=== PATIENT | female | born 1980 | race Caucasian/White ===

== ENCOUNTER 2019-04-20 09:50 | Inpatient (IN) ==
[2019-04-20] MEDS ORDERED: *HR* Nalbuphine 10 MG/ML AMPUL IVP PRN (10:02)
[2019-04-20] MEDS ORDERED: Naloxone 0.4 MG/ML INJ IVP PRN (10:02)
[2019-04-20] MEDS ORDERED: Metoclopramide 10 MG/2 ML VIAL IVP PRN (10:02)
[2019-04-20] MEDS ORDERED: Famotidine 20 MG/2 ML VIAL IVP PRN (10:02)
--- NOTE | 2019-04-20 10:10 | OB/GYN History & Physical ---
Date of Encounter: 04/20/19 Time of Encounter: 10:04 Assessment and Plan (1) 39 weeks gestation of Current visit: Yes Status: Acute Admitted for IOL Plain to start Pitocin (2) AMA (advanced maternal age) multigravida 35+ Current visit: Yes Status: Acute Schedule IOL per recommendations Qualifiers: Trimester: third trimester Qualified Code(s): O09.523 - Supervision of elderly multigravida, third trimester (3) History of macrosomia in infant in prior , currently Current visit: Yes Status: Acute History of 9#10oz , current has EFW of 8#130z 97% History of Present Illness Chief complaint: Sheduled IOL for AMA at 39 weeks gestation HPI: Ms. Gordon is a 38 year old female @ 39w0d presents to labor and delivery for scheduled IOL for AMA. IOL also recommended by Dr. Akbar for EFW of 8#13oz @ 97th percentile at [address] Smith is the physician operations engineer today, she is aware of POC and available if needed. Patient was a transfer of care during at 24 weeks gestation to [facility] from [place]. Patient did have an abnormal 1 hour and passed 3 hour gtt. She did have Polyhdramnios as well during the that has resolved. Blood type: O+ Rubella: Non-immune Hep B:Nonreactive GBS: Negative Past Med Surg Social Fam HX - Past Medical History Source: patient Medical history: no medical history Psychiatric history: no psych history - Past Surgical History Additional surgical history: RT ANKLE SURG, Tonsils, LEEP 1999 - Social History Smoking Status: Never smoker Smokeless Tobacco Status: No Alcohol use: none Drug use: none Occupational status: employed Current living situation: Home - Independent Activity Level: Independent ambulation Recent Out of Country Travel Within the Last 8 Weeks: No Exposure or Possible Exposure to Illness During Travel: No - Family History Mother Living Status: Still Living Hx Family Cardiac Disorders: Yes (HTN) Obstetrical History - Pregnancies : 7 Para: 4 Term: 4 : 0 Ab's: 2 Livin - History/Complications History/Complications: 1 MAB 1 Ectopic Medications and Allergies Ferrous Sulfate [Iron] 325 mg PO DAILY 04/20/19 [History] Omeprazole [PriLOSEC] 20 mg PO DAILY 04/20/19 [History] Allergy/AdvReac Type Severity Reaction Status Date / Time No Known Allergies Allergy Verified 04/20/19 10:15 Review of System OB - Constitutional Constitutional ROS IM: no chills, no fever(s), no headache(s) - Cardiovascular Cardiovascular: no chest pain, no palpitations, no paroxysmal nocturnal dyspnea, no syncope - Respiratory Respiratory: no cough, no dyspnea - Gastrointestinal Gastrointestinal: no abdominal pain, no constipation, no diarrhea, no heartburn, no nausea, no vomiting - Genitourinary Genitourinary: no abnormal vaginal bleeding, no dysuria, no flank pain, no urinary frequency, no urinary urgency, no vaginal discharge, no vaginal odor, no vaginal pruritis Exam - Constitutional Constitutional: well developed, well nourished, no acute distress, average body habitus - HEENT HEENT: Normocephaly, Mucus Membranes Moist - Neck Neck exam: full ROM, supple - Lungs Respiratory exam: CTAB - Cardiovascular Cardiovascular exam: RRR, +S1, +S2 - Abdomen Abdomen: Present: bowel sounds normal, gravid, non tender - Extremities Extremities exam: full ROM, normal capillary refill, normal inspection Deep Tendon Reflex Grade: 2+ Normal - Vagina Vagina: Present: normal moisture - Cervix Dilation: 3 Effacement: 80 Station: -2 - Uterus Uterus exam: Present: normal size, normal contour - Anus/Rectum Anus/Rectum: Present: normal perianal skin - Comments Comments: FHR 135 bpm moderate variability +15x15 accels no decels noted. Irregular contractions. Cat. 1 tracing. Results Result Diagrams: 04/20/19 10:28 All other labs normal. - VTE Reasons for not Prescribing Prophylaxis: Treatment not Indicated - Low risk for VTE
[2019-04-20] MEDS: Ringers Solution, Lactated 1,000 ML IVC SCH ×3 (10:15→20:15)
[2019-04-20] MEDS ORDERED: Oxytocin 20 units/ LR 1000 mL 20 UNIT/1,000 ML BAG IVC SCH (10:15)
[2019-04-20 10:46] LABS: Basophils % 0.1 %; Eosinophils # 0.1 K/mcL (0.0-0.6); Eosinophils % 0.8 %; Hemoglobin 9.1 g/dL (11.5-15.4); Immature Granulocytes % 0.7 % (0-4); Lymphocytes # 1.6 K/mcL (0.6-4.6); Lymphocytes % 19.3 %; Mean Corpuscular HGB Conc 31.4 g/dL (31.6-35.5); Mean Corpuscular Hemoglobin 25.9 pg (28.0-33.3); Mean Corpuscular Volume 82.4 fL (83.0-100.0); Mean Platelet Volume 11.6 fL (9.4-12.4); Monocytes # 0.6 K/mcL (0.0-1.3); Monocytes % 6.8 %; Platelet Count 148 K/mcL (140-400); Red Blood Count 3.52 M/mcL (3.82-4.97); Red Cell Distribution Width 16.2 % (11.5-14.5); Segmented Neutrophils % 72.3 %; White Blood Count 8.4 K/mcL (4.3-11.1)
[2019-04-20 11:41] LABS: Amphetamine Screen,Urine Negative ng/mL (Cutoff=1000); Barbiturate Screen,Urine Negative ng/mL (Cutoff=200); Benzodiazepines Screen,Urine Negative ng/mL (Cutoff=200); Cannabinoid Screen,Urine Negative ng/mL (Cutoff = 50); Cocaine Screen,Urine Negative ng/mL (Cutoff= 300); Opiate Screen,Urine Negative ng/mL (Cutoff=300); Phencyclidine Screen,Urine Negative ng/mL (Cutoff=25)
[2019-04-20] MEDS ORDERED: Methylergonovine 0.2 MG/ML AMPUL IM ONE (11:50)
--- NOTE | 2019-04-20 13:59 | OB Labor Progress Note ---
Date of Encounter: 04/20/19 Time of Encounter: 13:56 Labor Progress Note - Subjective Subjective: Patient doing well. Pitocin at 10 milliunits. Patient rates pain 3/10 while on birthing ball. Discussed POC with patient. Patient denies any questions or concerns. - Cervix Cervix: 3/80/-2s - Heart Tones Heart Tones: 125 bpm moderate variability no accels or decels at this time. - [address] [place]: 2-2.5 min apart - Interventions Interventions: SVE, discussed POC with patient. Patient denies any needs at this time. - Plan Physician notified: No Plan: Continue labor management Patient may have Nubain or epidural when desires.
[2019-04-20] MEDS: Ondansetron 4 MG/2 ML VIAL IVP PRN ×2 (14:28→19:04)
[2019-04-20] MEDS ORDERED: Epidural Premix (fent/bupiv) 110 ML EP ONE ×2 (14:54→20:00)
--- NOTE | 2019-04-20 15:29 | Anesthesia Evaluation PreOp ---
Date of Encounter: 04/20/19 Time of Encounter: 15:27 - Past History Planned Operation: ADELIA Cardiac History: Denies any Significant Hx Pulmonary History: Denies Any Significant HX GREEN CHAINER History: Denies Any Significant HX Other Medical History: Denies Any Significant HX Anesthesia History: No Prior Anesthetic Complications, Past Anesthesia Alcohol Use: none Drug use: none Medications and Allergies Ferrous Sulfate [Iron] 325 mg PO DAILY 04/20/19 [History] Omeprazole [PriLOSEC] 20 mg PO DAILY 04/20/19 [History] Allergy/AdvReac Type Severity Reaction Status Date / Time No Known Allergies Allergy Verified 04/20/19 10:15 - Meds/Allergy Pre-op Review Medications Reviewed: Yes Allergies Reviewed: Yes Beta Blockers on Current Med List: No Anesthesia Results - Labs 04/20/19 10:28 Anesthesia Exam O2 Sat Height 1.6 m Weight 90.4 kg NPO (# of Hours): 4 Pain Scale: 1 Pain Scale Used: Numeric (1 - 10) - HEENT Pupil (Motor): Pupils equal Mallampati: II Teeth: Normal Oral Opening: Greater than 3 - GREEN CHAINER LOC: Oriented GREEN CHAINER Motor: Normal RUE, Normal LUE, Normal RLE, Normal LLE, Normal Face GREEN CHAINER Sensory: Normal: RUE, LUE, RLE, LLE, Face - Cardiac Rhythm: Regular Murmur: None JVD: No Carotid Bruit: No - Pulmonary Breath Sounds: bilateral Clear Respiratory Effort: Symmetrical Anesthesia Assess/Plan ASA Score: 2 Level of consciousness: Cooperative, Oriented Anesthetic Plan: General, Epidural Autologous Blood: Yes Monitoring Plan: Standard Monitors Recovery Plan: PACU
--- NOTE | 2019-04-20 15:30 | Anesthesia Procedures ---
Date of Encounter: 04/20/19 Time of Encounter: 15:29 Procedures: Anesthesia - Epidural/Spinal Patient ID/Chart reviewed: Yes Patient examined: Yes OB Eval: Gestational age: 39 OB Eval: : 7 OB Eval: Hx Para: 4 OB Eval: Dilated at (cm): 4 OB Eval: Contractions: Non-stressed pattern Consent Obtained: Yes Supplemental Oxygen: None/Room Air Site Prep: Aseptic Technique, Sterile prep and drape, Povidone-Iodine 1% Patient position: upright Local Anesthetic: Lidocaine 1% Amount of Local Anesthetic used: 3 Touhy Needle Gauge: 18 Touhy Needle Depth (cm): 8 Catheter Depth at Skin (cm): 20 Test Dose (1.5% Lido + Epi): Volume given (mls): 5 Test Dose Result: Negative Loading Dose: Other: 5ml of epidural pharm bag premix solution Loading Dose Administered: Thru Catheter Infusion Med: 0.125% Bupivacaine w/ 2 mcg/ml Fentanyl Infusion Rate (mls/hr): 15 ([id number]) Catheter Secured in Place: Tegaderm, Tape Interspace Used: L4-L5 Loss of Resistance (ANGELICA): Yes Blood: No CSF: No Paresthesia: No Procedure: pt tolerated procedure well. no complications. vss. fhr stable.
--- NOTE | 2019-04-20 15:56 | OB Labor Progress Note ---
Date of Encounter: 04/20/19 Time of Encounter: 15:54 Labor Progress Note - Subjective Subjective: Patient resting comfortably with epidural in place. Patient denies any questions or concerns at this time. - Cervix Cervix: 5/80/0 - Heart Tones Heart Tones: 120 bpm moderate variability +15x15 accels no decels noted. Cat. 1 tracing - [place]: 2-3 min apart - Interventions Interventions: SVE, AROM large amount of clear fluid. Patient tolerated well. Pericare provided. - Plan Physician notified: No Plan: Continue labor management.
[2019-04-20] MEDS ORDERED: *HR* FentaNYL (PF) 100 MCG/2 ML VIAL ONE (19:04)
--- NOTE | 2019-04-20 19:13 | Anesthesia Progress Note ---
Date of Encounter: 04/20/19 Time of Encounter: 19:12 Anesthesia Note - Note Note: 04/20/19 19:12 called for increased pain during contractions. pain on left side. bolus given of 8ml 0.2% ropivacaine and 100mcg fentanyl. gtt increased to 18ml/hr. vss. fhr stable.
[2019-04-20] MEDS ORDERED: Epidural Premix (fent/bupiv) 110 ML EP SCH (20:00)
--- NOTE | 2019-04-20 23:53 | Event Note ---
Date of Encounter: 04/20/19 Time of Encounter: 23:41 Called to bedside with concern for shoulder dystocia intrapartum. The patient was +3 station. Suprapubic pressure administered while adequate and appropriate maneuvers had been performed: Aydee, Heart, Balderrama screw (these are three which I saw by the time I had arrived). Maternal effort was poor once the L shoulder was released from the pubic bone, followed by the R. The was the delivered by Kathrin Arias CNM. Cord was immediately clamped and cut, as baby was handed off to the warmers for stimulation and assessment. I was able to aid in delivery of the body as maternal effort was poor, however the was delivered by Kathrin Arias. Final weight of baby was 10#. Shoulder duration was 10 minutes. MD CLAIRE
--- NOTE | 2019-04-21 00:13 | OB/GYN Procedure Note ---
Delivery - Delivery Date: 04/20/19 Provider: Kathrin Arias Intrapartum events: none Delivery induction: AROM, oxytocin Delivery monitor: external FHT, external uterine Anesthesia: epidural Quantitated Blood Loss: 200 - (s) Infant A Infant Delivery Date: 04/20/19 Delivery Time: 23:33 Presentation: vertex Position: MATT Route of delivery: Gender: Female Viability: Viable Pounds: 10 Ounces: 0 at 1 minute: 7 at 5 mins: 9 Shoulder Dystocia: encountered Shoulder Dystocia Maneuvers: Aydee maneuver, suprapubic pressure, Balderrama Screw maneuver Specimens collected: cord blood Placenta: spontaneous, uterine exploration Cord: 3 umbilical vessels - Repair Episiotomy: none Laceration Description: Perineal - 1st Degree (repaired with 3-0 vicryl) - Complications Delivery complications: none - Disposition Mom disposition: stable in LDR disposition: stable in LDR - Comments Comments: Called to LDR. Patient complete. Patient placed in stirrups and prepped for vaginal delivery. I was gowned and gloved and delivered a viable female over a 1st degree perineal laceration. No nuchal cord or meconium noted. A shoulder dystocia was encountered and lasted approximately 2 minutes. Shoulder dystocia was relieved with Aydee maneuver, supra pubic pressure and woodscrew. Dr. Smith was called to the room and at bedside as the shoulder was reduced. Cord was clamped and cut and was turned over to nursery team. Cord segment was collected with cord gases. Cord blood was collected. The 1st degree laceration was then repaired with 3-0 vicryl. was returned to mother for skin to skin. Placenta spontaneously and visually intact. Uterus was explored for blood clots, none noted. EBL 200, Apgars 7/9. All counts correct. Pericare provided. Both mother and stable in LDR for 2 hour recovery.
[2019-04-21] MEDS ORDERED: Benzocaine/Menthol 56 GM AEROSOL SPRAY TP PRN (00:18)
[2019-04-21] MEDS ORDERED: Rho Immune Globulin 1,500 UNIT SYRINGE IM PRN (00:18)
[2019-04-21] MEDS ORDERED: Measles/Mumps/Rubella Vacc 0.5 ML VIAL SQ PRN (00:18)
[2019-04-21] MEDS ORDERED: *HR* OxyCODONE Immed Rel 5 MG TABLET PO PRN (00:18)
[2019-04-21] MEDS ORDERED: Oxytocin 20 units/ LR 1000 mL 20 UNIT/1,000 ML BAG IVC SCH (00:18)
[2019-04-21] MEDS ORDERED: Lanolin 7 G OINT...G. TP PRN (00:18)
[2019-04-21] MEDS: Acetaminophen 325 MG TABLET PO PRN ×2 (00:31→06:15)
[2019-04-21] MEDS ORDERED: Ondansetron 4 MG/2 ML VIAL IVP ONE (00:36)
[2019-04-21] MEDS: Ibuprofen 600 MG TABLET PO PRN ×4 (01:24→20:14)
[2019-04-21] MEDS: *HR* HYDROcodone/Acet 5/325 mg TABLET PO PRN ×4 (02:57→20:14)
[2019-04-21 07:30] LABS: Basophils % 0.1 %; Eosinophils % 0.3 %; Hematocrit 26.1 % (35.3-44.9); Hemoglobin 8.3 g/dL (11.5-15.4); Immature Granulocytes % 0.5 % (0-4); Lymphocytes # 1.5 K/mcL (0.6-4.6); Lymphocytes % 9.6 %; Mean Corpuscular HGB Conc 31.8 g/dL (31.6-35.5); Mean Corpuscular Hemoglobin 26.6 pg (28.0-33.3); Mean Corpuscular Volume 83.7 fL (83.0-100.0); Mean Platelet Volume 12.3 fL (9.4-12.4); Monocytes % 6.6 %; Neutrophils # 13.1 K/mcL (1.6-8.9); Platelet Count 146 K/mcL (140-400); Red Blood Count 3.12 M/mcL (3.82-4.97); Red Cell Distribution Width 16.1 % (11.5-14.5); Segmented Neutrophils % 82.9 %
[2019-04-21 07:38] LABS: Eosinophils # 0.1 K/mcL (0.0-0.6); White Blood Count 15.8 K/mcL (4.3-11.1)
[2019-04-21] MEDS: Prenatal Vit/FA 1 EACH TABLET PO SCH (08:33)
--- NOTE | 2019-04-21 08:40 | OB/GYN Progress Note ---
Date of Encounter: 04/21/19 Time of Encounter: 08:37 - Assessment and Plan (1) Vaginal delivery Current Visit: Yes Status: Acute Patient meeting day one milestones. Pain controlled with prescribed medications. Still quite sore from delivery. Voiding without difficulty, tolerating regular diet, bleeding moderate. No bowel movement yet. Anticipate discharge tomorrow (2) Acute blood loss anemia Current Visit: Yes Status: Acute Increase iron to twice daily (3) Breast feeding status of mother Current Visit: Yes Status: Acute support as needed Will provide breast pump prescription (4) First degree perineal laceration Current Visit: Yes Status: Acute Ice packs, Dermoplast, Motrin as needed for discomfort. Subjective - Subjective Principal diagnosis: Status post vaginal delivery Interval history: Delivery Date: 04/20/19 Provider: Kathrin Arias Intrapartum events: none Delivery induction: AROM, oxytocin Delivery monitor: external FHT, external uterine Anesthesia: epidural Quantitated Blood Loss: 200 - Infant (s) A Delivery Date: 04/20/19 Infant Delivery Time: 23:33 Presentation: vertex Position: MATT Route of delivery: Gender: Female Viability: Viable Pounds: 10 Ounces: 0 at 1 minute: 7 at 5 mins: 9 Shoulder Dystocia: encountered Shoulder Dystocia Maneuvers: Aydee maneuver, suprapubic pressure, Balderrama Screw maneuver Specimens collected: cord blood Placenta: spontaneous, uterine exploration Cord: 3 umbilical vessels - Repair Episiotomy: none Laceration Description: Perineal - 1st Degree (repaired with 3-0 vicryl) - Complications Delivery complications: none - Disposition Mom disposition: stable in LDR [place] disposition: stable in LDR - Comments Comments: Called to LDR. Patient complete. Patient placed in stirrups and prepped for vaginal delivery. I was gowned and gloved and delivered a viable female infant over a 1st degree perineal laceration. No nuchal cord or meconium noted. A shoulder dystocia was encountered and lasted approximately 2 minutes. Shoulder dystocia was relieved with Aydee maneuver, supra pubic pressure and wo odscrew. Dr. Smith was called to the room and at bedside as the shoulder was reduced. Cord was clamped and cut and was turned over to nursery team. Cord segment was collected with cord gases. Cord blood was collected. The 1st degree laceration was then repaired with 3-0 vicryl. was returned to mother for skin to skin. Placenta spontaneously and visually intact. Uterus was explored for blood clots, none noted. EBL 200, Apgars 7/9. All counts correct. Pericare provided. Both mother and stable in LDR for 2 hour recovery. Patient reports: appetite normal, voiding normally, pain well controlled, ambulating normally [place]: doing well, nursing well Objective - Latest Vital Signs Latest vital signs: Vital Signs Temp Pulse Resp BP Pulse Ox 04/21/19 07:38 98.2 F 80 16 98/63 97 04/21/19 04:45 98.6 F 83 14 98/63 97 04/21/19 03:45 98.1 F 89 16 101/62 97 04/21/19 02:40 98 F 80 16 108/71 96 Intake and Output 04/20/19 04/21/19 04/21/19 23:59 07:59 15:59 Intake Total 1000 / 2000 Output Total 500 / 500 Balance 1000 / 2000 -500 / -500 Intake: IV Fluids 1000 / 2000 Lactated Ringers 1,000 ML @ 125 1000 / 2000 mls/hr IVC .Q8H ZAN Rx#: [id number] Output: Urine 500 / 500 Other: Weight 89.3 kg Patient Weight 04/21/19 23:59 Weight 89.3 kg - Exam Lungs: bilateral: normal Chest: Normal S1, Normal S2 Extremities: Present: normal Abdomen: Present: normal appearance, soft, tenderness (Reports tenderness on pubic bone and sternum. Denies pain with deep breathing.) Uterus: Present: normal, firm Uterus Position: 1 Finger Above Umbilicus, Midline - Labs Labs: Laboratory Results - last 24 hr 04/20/19 04/20/19 04/21/19 10:28 10:28 06:16 WBC 8.4 15.8 H D RBC 3.52 L 3.12 L Hgb 9.1 L 8.3 L Hct 29.0 L 26.1 L MCV 82.4 L 83.7 MCH 25.9 L 26.6 L MCHC 31.4 L 31.8 RDW 16.2 H 16.1 H Plt Count 148 146 MPV 11.6 12.3 Immature Gran % 0.7 0.5 Seg Neutrophils % 72.3 82.9 Lymphocytes % 19.3 9.6 Monocytes % 6.8 6.6 Eosinophils % 0.8 0.3 Basophils % 0.1 0.1 Neutrophils # 6.0 13.1 H Lymphocytes # 1.6 1.5 Monocytes # 0.6 1.0 Eosinophils # 0.1 0.1 Basophils # 0.0 0.0 Urine Opiates Screen Negative Ur Buprenorphine Scrn Negative Ur Barbiturates Screen Negative Ur Phencyclidine Scrn Negative Ur Amphetamines Screen Negative U Benzodiazepines Scrn Negative Urine Cocaine Screen Negative U Marijuana (THC) Screen Negative Ur Drug Screen Interp See Below
[2019-04-22] MEDS: Ibuprofen 600 MG TABLET PO PRN (04:21)
[2019-04-22] MEDS: *HR* HYDROcodone/Acet 5/325 mg TABLET PO PRN (04:21)
--- NOTE | 2019-04-22 07:24 | Discharge Summary ---
Date of Encounter: 04/22/19 Time of Encounter: 07:18 - Discharge Diagnosis (1) Vaginal delivery Priority: Primary Status: Acute Comments: Patient meeting day two milestones. Pain well-controlled with prescribed medications. Voiding without difficulty, tolerating regular diet, bleeding light. Anticipate discharge today (2) Acute blood loss anemia Priority: Secondary Status: Acute Comments: Discharge home with twice daily iron prescription (3) Breast feeding status of mother Priority: Secondary Status: Acute Comments: support as needed. Breast pump prescription provided (4) First degree perineal laceration Priority: Secondary Status: Acute Comments: Motrin, Dermoplast, ice packs as needed for discomfort. - Discharge Medications Prescriptions: New Mupirocin [Bactroban Oint] 1 appl TP BID tube Breast Pump [BREAST PUMP] 1 each .ROUTE AD #1 each Docusate [Colace] 100 mg PO BID capsule Benzocaine/Menthol [place] [Dermoplast [place]] 1 appl TP QID PRN aerosol PRN Reason: See Comments Ferrous Sulfate 325 mg PO BIDWM #60 tablet Lanolin [Lansinoh] 1 appl TP QID PRN oint...g. PRN Reason: Ibuprofen [Motrin] 600 mg PO Q6H PRN #60 tablet PRN Reason: Pain HYDROcodone/Acet 5/325 mg [[place] 5-325 mg] 1 tab PO Q6HR PRN 3 Days #10 tablet PRN Reason: Breakthrough Pain Acetaminophen [Tylenol] 650 mg PO Q6HR PRN tablet PRN Reason: Mild Pain Continued Omeprazole [PriLOSEC] 20 mg PO DAILY Discontinued Ferrous Sulfate [Iron] 325 mg PO DAILY Home Medications: Omeprazole [PriLOSEC] 20 mg PO DAILY 04/20/19 [History] Acetaminophen [Tylenol] 650 mg PO Q6HR PRN tablet 04/22/19 [Rx] Benzocaine/Menthol [place] [Dermoplast [place]] 1 appl TP QID PRN aerosol 04/22/19 [Rx] Breast Pump [BREAST PUMP] 1 each .ROUTE AD #1 each 04/22/19 [Rx] Docusate [Colace] 100 mg PO BID capsule 04/22/19 [Rx] Ferrous Sulfate 325 mg PO BIDWM #60 tablet 04/22/19 [Rx] HYDROcodone/Acet 5/325 mg [[place] 5-325 mg] 1 tab PO Q6HR PRN 3 Days #10 tablet 04/22/19 [Rx] Ibuprofen [Motrin] 600 mg PO Q6H PRN #60 tablet 04/22/19 [Rx] Lanolin [Lansinoh] 1 appl TP QID PRN oint...g. 04/22/19 [Rx] Mupirocin [Bactroban Oint] 1 appl TP BID tube 04/22/19 [Rx] Allergies/Adverse Reactions: Allergy/AdvReac Type Severity Reaction Status Date / Time No Known Allergies Allergy Verified 04/20/19 10:15 Data Procedures and tests throughout hospitalization: Laboratory Tests 04/20/19 04/20/19 04/21/19 10:28 10:28 06:16 WBC 8.4 15.8 H D RBC 3.52 L 3.12 L Hgb 9.1 L 8.3 L Hct 29.0 L 26.1 L MCV 82.4 L 83.7 MCH 25.9 L 26.6 L MCHC 31.4 L 31.8 RDW 16.2 H 16.1 H Plt Count 148 146 MPV 11.6 12.3 Immature Gran % 0.7 0.5 Seg Neutrophils % 72.3 82.9 Lymphocytes % 19.3 9.6 Monocytes % 6.8 6.6 Eosinophils % 0.8 0.3 Basophils % 0.1 0.1 Neutrophils # 6.0 13.1 H Lymphocytes # 1.6 1.5 Monocytes # 0.6 1.0 Eosinophils # 0.1 0.1 Basophils # 0.0 0.0 Urine Opiates Screen Negative Ur Buprenorphine Scrn Negative Ur Barbiturates Screen Negative Ur Phencyclidine Scrn Negative Ur Amphetamines Screen Negative U Benzodiazepines Scrn Negative Urine Cocaine Screen Negative U Marijuana (THC) Screen Negative Ur Drug Screen Interp See Below Labs on day of discharge: Labs from last 24 hours 04/21/19 06:16 WBC 15.8 H D RBC 3.12 L Hgb 8.3 L Hct 26.1 L MCV 83.7 MCH 26.6 L MCHC 31.8 RDW 16.1 H Plt Count 146 MPV 12.3 Immature Gran % 0.5 Seg Neutrophils % 82.9 Lymphocytes % 9.6 Monocytes % 6.6 Eosinophils % 0.3 Basophils % 0.1 Neutrophils # 13.1 H Lymphocytes # 1.5 Monocytes # 1.0 Eosinophils # 0.1 Basophils # 0.0 Date of admission: 04/20/19 09:50 Primary care physician: Rena Amador CNP Consults: 04/21/19 00:18 Consult to Continuous Improvement Engineer [CONS] Routine Comment: Vaginal delivery, consult needed Discharging clinician: Juana Curiel Anticipated date of discharge: 04/22/19 - Patient Status Disposition: Home, Self-Care Condition: Good Functional capacity at discharge: independent ambulation Overall status at discharge: patient is progressing back to baseline - Discharge Instructions Follow Up With: Rena Amador CNP [Primary Care Provider] - - Diet and Activity Activity: resume usual activities as tolerated Diet: regular diet Hospital Course Reason for admission: induction of labor Delivery: Episiotomy: none Laceration: 1st degree Other procedures: none complications: none Discharge diagnosis: IUP at term delivered [place] baby: female Hospital course: Delivery Date: 04/20/19 Provider: Kathrin Arias Intrapartum events: none Delivery induction: AROM, oxytocin Delivery monitor: external FHT, external uterine Anesthesia: epidural Quantitated Blood Loss: 200 - (s) A Infant Delivery Date: 04/20/19 Delivery Time: 23:33 Presentation: vertex Position: MATT Route of delivery: Gender: Female Viability: Viable Pounds: 10 Ounces: 0 at 1 minute: 7 at 5 mins: 9 Shoulder Dystocia: encountered Shoulder Dystocia Maneuvers: Aydee maneuver, suprapubic pressure, Balderrama Screw maneuver Specimens collected: cord blood Placenta: spontaneous, uterine exploration Cord: 3 umbilical vessels - Repair Episiotomy: none Laceration Description: Perineal - 1st Degree (repaired with 3-0 vicryl) - Complications Delivery complications: none - Disposition Mom disposition: stable in LDR disposition: stable in LDR - Comments Comments: Called to LDR. Patient complete. Patient placed in stirrups and prepped for vaginal delivery. I was gowned and gloved and delivered a viable female over a 1st degree perineal laceration. No nuchal cord or meconium noted. A shoulder dystocia was encountered and lasted approximately 2 minutes. Shoulder dystocia was relieved with Aydee maneuver, supra pubic pressure and woodscrew. Dr. Smith was called to the room and at bedside as the shoulder was reduced. Cord was clamped and cut and was turned over to nursery team. Cord segment was collected with cord gases. Cord blood was collected. The 1st degree laceration was then repaired with 3-0 vicryl. was returned to [facility] for skin to skin. Placenta spontaneously and visually intact. Uterus was explored for blood clots, none noted. EBL 200, Apgars 7/9. All counts correct. Pericare provided. Both mother and stable in LDR for 2 hour recovery. Time Attestation: Total time spent providing and/or coordinating discharge services: Time Spent: Less than 30 minutes Exam - Constitutional Vitals: Temp Pulse Resp BP Pulse Ox 98.3 F 82 14 110/72 99 04/21/19 20:20 04/21/19 20:20 04/21/19 20:20 04/21/19 20:20 04/21/19 20:20 General appearance IM: A&O X 3, pleasant, no acute distress, answers questions appropriately - Respiratory Respiratory exam: Present: CTAB. Absent: respiratory distress - Cardiovascular Cardiovascular exam IM: Present: RRR, +S1, +S2. Absent: irregular rhythm - GI/Abdominal GI/Abdominal exam IM: normal bowel sounds, soft - Rectal Rectal exam: deferred - External exam: normal external exam Uterine Tone: Firm Uterus Position: 1 Finger Below Umbilicus, Midline - Extremities Exam Extremities exam IM: Present: full ROM, normal capillary refill, normal inspection. Absent: calf tenderness - Neurological Exam Neurological exam: alert, normal gait, oriented X3
[2019-04-22 08:28] VITALS: BP 101/64
[2019-04-22] MEDS: Prenatal Vit/FA 1 EACH TABLET PO SCH (09:15)
[2019-04-22] MEDS: Acetaminophen 325 MG TABLET PO PRN (09:15)
== END 2019-04-22 11:51 | disposition home or self-care (01) | DRG 806 ==
LOC: 1NENULAB 09:50 → 1NENUOBS 04-21 02:22
PROVIDERS: ADMIT Advanced Practice Midwife; ATTEND Advanced Practice Midwife